=== PATIENT | male | born 1960 | race African-American/Black ===

== ENCOUNTER 2018-02-04 13:31 | Emergency (ER) | payer SELFPAY ==
[2018-02-04] MEDS: HYDROcodone/APAP 5/325MG 1 TAB TABLET PO (15:31)
== END 2018-02-04 16:43 | disposition home or self-care (01) ==
LOC: ER 16:43
DX: R60.9 Edema, unspecified (principal); R20.2 Paresthesia of skin; M79.632 Pain in left forearm
CPT/HCPCS: 93971; 99284

== ENCOUNTER 2021-07-04 11:13 | Emergency (ER) | payer SELFPAY ==
[~2021-07-04] VITALS: Ht 167.6 cm; Wt 69.2 kg
[~2021-07-04 11:13] MED LIST: NAPR500T8 PO
[2021-07-04 11:35] VITALS: BP 157/87
[2021-07-04] MEDS ORDERED: CEPH500T PO (12:57)
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
== END 2021-07-04 13:16 | disposition home or self-care (01) ==
LOC: ER 11:13
DX: L03.115 Cellulitis of right lower limb (principal)
CPT/HCPCS: 99283